=== PATIENT | female | born 1980 | race Caucasian/White ===

== ENCOUNTER 2021-03-30 07:11 | Observation (INO) | payer OTHER ==
[2021-03-30 08:01] LABS: Absolute Lymphocytes (CBC) 1.4 K/uL (0.7-4.9); Basophils % 0.7 % (0-1.3); Hematocrit 40.6 % (36.0-45.0); Lymphocytes % 17.7 % (15.3-44.8); MPV 6.9 fL (7.6-11.3); RBC Red Blood Cell Count 4.42 M/uL (3.86-4.86)
[2021-03-30 08:07] LABS: Protime INR 0.9
[2021-03-30 08:20] LABS: Potassium 3.2 mmol/L (3.5-5.1); Troponin (Emerg Dept Use Only) 0.46 ng/mL (0.0-0.045)
--- NOTE | 2021-03-30 09:14 | RAD REPORT ---
EXAM DESCRIPTION: CT - Head Brain Wo Cont - 03/30/2021 8:54 am CLINICAL HISTORY: Headache COMPARISON: None TECHNIQUE: Computed axial tomography of the head was obtained. IV contrast was not requested. All CT scans are performed using dose optimization technique as appropriate and may include automated exposure control or mA/KV adjustment according to patient size. FINDINGS: An intracranial bleed is not seen . The ventricles are normal in caliber. No extra-axial fluid collection is noted. Fluid within the sinuses/ mastoids is not seen. IMPRESSION: No acute intracranial abnormality is seen. If patient's symptoms persist MRI of the bra in would be recommended.
--- NOTE | 2021-03-30 09:17 | RAD REPORT ---
EXAM DESCRIPTION: CTHead angio03/30/2021 8:54 am CLINICAL HISTORY: Headache/hypertension COMPARISON: None TECHNIQUE: CT angiogram of the head was obtained. 3D MIPS reconstruction performed. All CT scans are performed using dose optimization technique as appropriate and may include automated exposure control or mA/KV adjustment according to patient size. 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 The basilar, internal carotid, anterior cerebral, middle cerebral and posterior cerebral arteries do not demonstrate a significant stenosis No aneurysm displayed IMPRESSION: No acute abnormality is seen
--- NOTE | 2021-03-30 09:19 | RAD REPORT ---
EXAM DESCRIPTION: Joce Single View03/30/2021 8:09 am CLINICAL HISTORY: Palpitations COMPARISON: none FINDINGS: The lungs appear clear of acute infiltrate. The heart is normal size IMPRESSION: No acute abnormalities displayed
--- NOTE | 2021-03-30 09:39 | ER ---
Nurse's Notes [facility] Name: Thelma Pinedo Age: 40 yrs Sex: Female : 1980 Arrival Date: 03/30/2021 Time: 07:16 Bed 25 Private MD: Diagnosis: Hypertensive emergency;Abnormal/elevated troponin Presentation: 03/30 07:25 Chief complaint: Patient states: Pounding headache this morning. Pt reports that her BP ss was 240/150 when she checked it this AM. HX of hypertension. Pt reports that her headache seems to be improving slightly. Coronavirus screen: Client denies travel out of the [place] in the last 14 days. Ebola Screen: Patient denies exposure to infectious person. Patient denies travel to an Ebola-affected area in the 21 days before illness onset. Initial Sepsis Screen: Does the patient meet any 2 criteria? No. Patient's initial sepsis screen is negative. Does the patient have a suspected source of infection? No. Patient's initial sepsis screen is negative. Risk Assessment: Do you want to hurt yourself or someone else? Patient reports no desire to harm self or others. Onset of symptoms was March 30, 2021. 07:25 Method Of Arrival: Ambulatory ss 07:25 Acuity: RENE 3 ss KITCHEN AIDE: 11:10 LMP N/A - Irregular menses jd3 Historical: - Home Meds: 07:26 Hydrochlorothiazide Oral [Active]; amlodipine oral [Active]; Hydralazine Oral [Active]; ss - PMHx: 07:26 Hypertensive disorder; ss - Immunization history:: Adult Immunizations up to date. - Family history:: not pertinent. - Social history:: Smoking status: Patient/guardian denies using tobacco, the patient reports quitting approximately 4 years ago. - Hospitalizations: : No recent hospitalization is reported. Screenin:38 Abuse screen: Denies threats or abuse. Nutritional screening: No deficits noted. jd3 Tuberculosis screening: No symptoms or risk factors identified. Fall Risk Ambulatory Aid- None/Bed Rest/Nurse Assist (0 pts). Gait- Normal/Bed Rest/Wheelchair (0 pts) Mental Status- Oriented to own ability (0 pts). Total Rocha Fall Scale indicates No Risk (0-24 pts). Assessment: 07:30 General: Appears in no apparent distress. comfortable, Behavior is calm, cooperative, jd3 appropriate for age. Pain: Denies pain. Neuro: Level of Consciousness is awake, alert, obeys commands, Oriented to person, place, time, situation, Reports dizziness, headache. Cardiovascular: Heart tones S1 S2 present Capillary refill < 3 seconds Patient's skin is warm and dry. Rhythm is regular. Respiratory: Airway is patent Respiratory effort is even, unlabored, Respiratory pattern is regular, symmetrical, Breath sounds are clear bilaterally. GI: No signs and/or symptoms were reported involving the gastrointestinal system. : No signs and/or symptoms were reported regarding the genitourinary system. EENT: No signs and/or symptoms were reported regarding the EENT system. Derm: Skin is intact, Skin is dry, Skin is normal, Skin temperature is warm. 08:36 Reassessment: Patient appears in no apparent distress at this time. No changes from jd3 previously documented assessment. Patient and/or family updated on plan of care and expected duration. Pain level reassessed. Patient is alert, oriented x 3, equal unlabored respirations, skin warm/dry/pink. 09:42 Reassessment: Patient appears in no apparent distress at this time. Patient and/or jd3 family updated on plan of care and expected duration. Pain level reassessed. Patient is alert, oriented x 3, equal unlabored respirations, skin warm/dry/pink. Patient states feeling better. 11:08 Reassessment: Patient appears in no apparent distress at this time. Patient and/or jd3 family updated on plan of care and expected duration. Pain level reassessed. Patient is alert, oriented x 3, equal unlabored respirations, skin warm/dry/pink. charting continued in [facility]. pt moved to ER hold status Patient states feeling better. Vital Signs: 07:25 BP 181 / 103; Pulse 102; Resp 17; Temp 98.1(TE); Pulse Ox 100% on R/A; ss 07:30 BP 158 / 92; Pulse 90; Resp 18 S; Pulse Ox 100% on R/A; al4 08:00 BP 168 / 89; Pulse 97; Resp 22 S; Pulse Ox 99% on R/A; al4 08:36 BP 159 / 90; Pulse 76; Resp 18 S; Pulse Ox 99% on R/A; jd3 09:45 BP 181 / 101; Pulse 79; Resp 15 S; Pulse Ox 99% on R/A; jd3 11:10 BP 176 / 104; Pulse 99; Resp 18 S; Pulse Ox 99% on R/A; jd3 ED Course: 07:16 Patient arrived in ED. ds1 07:17 Jethro Melendez MD is Attending Physician. rn 07:19 Jaron Alexander, DEYSI is Primary Nurse. jd3 07:26 Triage completed. ss 07:26 Arm band placed on left wrist. ss 07:32 Patient has correct armband on for positive identification. Placed in gown. Bed in low mh5 position. Side rails up X 1. Warm blanket given. neurology stroke physician on. Pulse ox on. NIBP on. 07:33 EKG done, by ED staff, reviewed by Jethro Melendez MD. 5 07:50 Missed attempt(s): 20 gauge in right forearm. Bleeding controlled, band aid applied, jd3 catheter tip intact. Missed attempt(s): 22 gauge in left wrist. Bleeding controlled, band aid applied, catheter tip intact. 08:09 XRAY Chest (1 view) In Process Unspecified. EDMS 08:30 Inserted saline lock: 22 gauge in right antecubital area, using aseptic technique. ss Blood collected. 08:54 CT Head Brain wo Cont In Process Unspecified. EDMS 08:54 CT Head Angio In Process Unspecified. EDMS 09:37 Saman Blakely MD is Hospitalizing Provider. rn 11:09 No provider procedures requiring assistance completed. Patient admitted, IV remains in jd3 place. Administered Medications: 10:17 Drug: Aspirin Chewable Tablet 324 mg Route: PO; jd3 11:12 Follow up: Response: No adverse reaction jd3 11:52 Drug: Metoprolol 25 mg Route: PO; jd3 Outcome: 09:38 Decision to Hospitalize by Provider. rn 11:10 Admitted to ER Hold. Please see [facility] for further documentation. jd3 11:10 Condition: stable 11:10 Instructed on the need for admit, Demonstrated understanding of instructions. 20:05 Patient left the ED. mw2 Signatures: Dispatcher [employer] EDMS Tram Morrell ds1 Jethro Melendez MD MD rn Smirch, Shelby, RN RN Marija Pagan [facility] Jaron Alexander RN RN jd3 Deion Taylor mw2 Ric Clemons al4 Corrections: (The following items were deleted from the chart) 08:34 08:00 BP 168 / 89; Pulse 97bpm; Resp 18bpm; Spontaneous; Pulse Ox 99% RA; al4 al4
--- NOTE | 2021-03-30 09:39 | EDPHYS ---
Physician Documentation [facility] Name: Thelma Pinedo Age: 40 yrs Sex: Female : 1980 Arrival Date: 03/30/2021 Time: 07:16 Bed 25 Private MD: ED Physician Jethro Melendez HPI: 03/30 07:29 This 40 yrs old Female presents to ER via Ambulatory with complaints of High rn Blood Pressure. 07:29 The patient has elevated blood pressure and discovered this at home. Onset: The rn symptoms/episode began/occurred this morning. Modifying factors:. Associated signs and symptoms: Pertinent positives: headache, Pertinent negatives: chest pain, dyspnea, vomiting, weakness. Severity of symptoms: At its worst the blood pressure was severe, in the emergency department the blood pressure is improved. The patient has not experienced similar symptoms in the past. The patient has not recently seen a physician. Pt reports woke up this morning with pounding headache and pounding heartbeat. Reports hx of HTN. Takes 3 different medications for BP. Denies chest pain or sob. Denies abd or back pain. No focal neurological complaints. No vision loss. Takes medication at night, has not taken anything this AM.. RESIDENCY PROGRAM COORDINATOR: 11:10 LMP N/A - Irregular menses jd3 Historical: - Home Meds: 07:26 Hydrochlorothiazide Oral [Active]; amlodipine oral [Active]; Hydralazine Oral [Active]; ss - PMHx: 07:26 Hypertensive disorder; ss - Immunization history:: Adult Immunizations up to date. - Family history:: not pertinent. - Social history:: Smoking status: Patient/guardian denies using tobacco, the patient reports quitting approximately 4 years ago. - Hospitalizations: : No recent hospitalization is reported. ROS: 07:29 Constitutional: Negative for fever, chills, and weight loss, Eyes: Negative for injury, rn pain, redness, and discharge, ENT: Negative for injury, pain, and discharge, Neck: Negative for injury, pain, and swelling, Cardiovascular: Negative for chest pain, and edema, Respiratory: Negative for shortness of breath, cough, wheezing, and pleuritic chest pain, Abdomen/GI: Negative for abdominal pain, nausea, vomiting, diarrhea, and constipation, Back: Negative for injury and pain, : Negative for injury, bleeding, discharge, and swelling, MS/Extremity: Negative for injury and deformity, Skin: Negative for injury, rash, and discoloration, Neuro: Negative for weakness, numbness, tingling, and seizure. Exam: 07:29 Constitutional: This is a well developed, well nourished patient who is awake, alert, rn and in no acute distress. Head/Face: Normocephalic, atraumatic. Eyes: Periorbital areas with no swelling, redness, or edema. Neck: Trachea midline, no masses palpated. Supple, full range of motion without nuchal rigidity, or vertebral point tenderness. No Meningismus. Cardiovascular: Tachycardic, regular. No pulse deficits. Respiratory: No increased work of breathing, no retractions or nasal flaring. Abdomen/GI: soft, non-tender, no masses Skin: Warm, dry MS/ Extremity: Pulses equal, no cyanosis. Neuro: Awake and alert, GCS 15, oriented to person, place, time, and situation. Cranial nerves II-XII grossly intact. Motor strength 5/5 in all extremities. Sensory grossly intact. Cerebellar exam normal. 08:21 ECG was reviewed by the Attending Physician. rn Vital Signs: 07:25 BP 181 / 103; Pulse 102; Resp 17; Temp 98.1(TE); Pulse Ox 100% on R/A; ss 07:30 BP 158 / 92; Pulse 90; Resp 18 S; Pulse Ox 100% on R/A; al4 08:00 BP 168 / 89; Pulse 97; Resp 22 S; Pulse Ox 99% on R/A; al4 08:36 BP 159 / 90; Pulse 76; Resp 18 S; Pulse Ox 99% on R/A; jd3 09:45 BP 181 / 101; Pulse 79; Resp 15 S; Pulse Ox 99% on R/A; jd3 11:10 BP 176 / 104; Pulse 99; Resp 18 S; Pulse Ox 99% on R/A; jd3 MDM: 07:20 Patient medically screened. rn 09:35 Differential diagnosis: hypertensive crisis, Malignant HTN, intracerebral hemorrhage. rn Data reviewed: vital signs, nurses notes, lab test result(s), EKG, radiologic studies, CT scan, plain films, and as a result, I will admit patient. Data interpreted: property assessment monitor: rate is 76 beats/min, rhythm is normal sinus rhythm, regular, with no ectopy, Interpretation: normal rate, normal rhythm, Pulse oximetry: on room air is 99 %. Interpretation: normal. Counseling: I had a detailed discussion with the patient and/or guardian regarding: the historical points, exam findings, and any diagnostic results supporting the discharge/admit diagnosis, lab results, radiology results, the need for further work-up and treatment in the hospital. Response to treatment: the patient's symptoms have markedly improved after treatment, and as a result, I will admit patient. Admission orders: after a detailed discussion of the patient's condition and case, the admit orders are written by me. ED course: Patient has improved symptomatically, blood pressure now down to 159/90 without intervention here. ECG without acute ischemia. Troponin mildly elevated, will admit for hypertensive emergency. Admitted to Dr. Blakely. 03/30 07:29 Order name: Basic Metabolic Panel; Complete Time: 08:20 03/30 07:29 Order name: CBC with Diff; Complete Time: 08:20 03/30 07:29 Order name: NT PRO-BNP; Complete Time: 08:20 rn 03/30 07:29 Order name: PT-INR; Complete Time: 08:20 03/30 07:29 Order name: Troponin (emerg Dept Use Only); Complete Time: 08:20 03/30 09:39 Order name: SARS-COV-2 RT PCR (Document "Date of Onset" if Symptomatic) 03/30 09:39 Order name: SARS-COV-2 RT PCR; Complete Time: 11:37 EDNH 03/30 10:21 Order name: Basic Metabolic Panel EDNH 03/30 10:21 Order name: Basic Metabolic Panel EDNH 03/30 10:21 Order name: CBC with Automated Diff EDMS 03/30 10:21 Order name: CBC with Automated Diff EDMS 03/30 10:21 Order name: Lipid Profile EDNH 03/30 10:21 Order name: Lipid Profile EDNH 03/30 10:21 Order name: Troponin I EDNH 03/30 07:29 Order name: XRAY Chest (1 view); Complete Time: 09:24 rn 03/30 07:29 Order name: EKG; Complete Time: 07:29 rn 03/30 07:29 Order name: Cardiac monitoring; Complete Time: 07:32 rn 03/30 07:29 Order name: EKG - Nurse/Tech; Complete Time: 07:32 rn 03/30 07:29 Order name: IV Saline Lock; Complete Time: 08:28 rn 03/30 07:29 Order name: Labs collected and sent; Complete Time: 07:55 rn 03/30 07:29 Order name: O2 Per Protocol; Complete Time: 07:32 rn 03/30 07:29 Order name: O2 Sat Monitoring; Complete Time: 07:32 rn 03/30 07:29 Order name: CT Head Brain wo Cont; Complete Time: 09:24 rn 03/30 07:29 Order name: CT Head Angio; Complete Time: 09:24 rn 03/30 10:21 Order name: Heart Healthy EDMS 03/30 10:21 Order name: Echo with Doppler EDMS 03/30 10:21 Order name: Troponin I EDMS 03/30 10:21 Order name: Troponin I EDMS EC:21 Rate is 82 beats/min. Rhythm is regular. QRS [place] is Normal. NC interval is normal. QRS rn interval is normal. QT interval is prolonged at 497 msec. No Q waves. T waves are Normal. No ST changes noted. Clinical impression: NSR w/ Non-specific ST/T Changes. Interpreted by me. Reviewed by me. Administered Medications: 10:17 Drug: Aspirin Chewable Tablet 324 mg Route: PO; jd3 11:12 Follow up: Response: No adverse reaction jd3 11:52 Drug: Metoprolol 25 mg Route: PO; jd3 Disposition Summary: 03/30/21 09:38 Hospitalization Ordered Hospitalization Status: Observation rn Provider: Saman Blakely [facility]n [facility] rn Condition: Stable rn Problem: new rn Symptoms: have improved rn Bed/Room Type: Standard rn Room Assignment: 401(03/30/21 16:50) morris Diagnosis - Hypertensive emergency rn - Abnormal/elevated troponin rn Forms: - Medication Reconciliation Form rn - SBAR form rn Signatures: Dispatcher [employer] Jethro Alonso MD MD rn Smirch, Shelby, RN RN ss Davies, Jonathon, RN RN jd3 Aguilar, Jose RN DEYSI caceres Corrections: (The following items were deleted from the chart) 16:50 09:38 rn ja1
[2021-03-30] MEDS ORDERED: ASPIRIN 81 MG CHEWABLE TABLET ONE (10:06)
[2021-03-30] MEDS ORDERED: ACETAMINOPHEN 500 MG TAB PO PRN (10:18)
[2021-03-30] MEDS ORDERED: MORPHINE 2 MG/ML SYR IV PRN (10:18)
[2021-03-30] MEDS ORDERED: METOPROLOL TAR 25 MG TAB ONE (11:51)
[2021-03-30 13:34] VITALS: BMI 30.2
[2021-03-30] MEDS ORDERED: METOPROLOL TAR 50 MG TAB ONE (17:07)
[2021-03-30] MEDS: METOPROLOL TAR 50 MG TAB PO SCH (17:09)
--- NOTE | 2021-03-30 19:20 | P.HP ---
Certification for Inpatient Patient admitted to: Observation With expected LOS: <2 Midnights Patient will require the following post-hospital care: None Practitioner: I am a practitioner with admitting privileges, knowledge of patient current condition, hospital course, and medical plan of care. Services: Services provided to patient in accordance with Admission requirements found in Title 42 Section 412.3 of the Code of Federal Regulations Patient History Date of Service: 03/30/21 Reason for admission: Hypertensive emergency History of Present Illness: Patient is a 40-year-old female who came to the hospital with elevated blood pressure. She states initially it was 240/150. She has a history of hypertension but it has never been this high. She came into the hospital for further evaluation. In the ER, she was given anti hypertensives and her blood pressure has improved. She appears to be doing well clinically. She was having some chest pain but that has resolved. Her initial troponins are elevated. EKGs are unremarkable. Patient will be admitted for further evaluation. Allergies No Known Allergies Allergy (Unverified 03/30/21 10:59) Home Medications: Amlodipine [Norvasc*] 1 tab PO DAILY 03/30/21 Hydralazine [Apresoline*] 1 tab PO TID 03/30/21 hydroCHLOROthiazide [Hydrochlorothiazide] 1 tab PO DAILY 03/30/21 - Past Medical/Surgical History Has patient received pneumonia vaccine in the past: No Diabetic: No -: Hypertension -: - Family History Father Medical History: Diabetes Mother Medical History: Hypertension - Social History Smoking Status: Unknown if ever smoked Alcohol use: Yes Place of Residence: Home Review of Systems 10-point ROS is otherwise unremarkable Physical Examination - Vital Signs Temperature: 97.4 F Blood Pressure: 142/90 Pulse: 81 Respirations: 18 Pulse Ox (%): 100 - Physical Exam General: Alert, In no apparent distress, Oriented x3 HEENT: Atraumatic, PERRLA, Mucous membr. moist/pink, EOMI, Sclerae nonicteric Neck: Supple, 2+ carotid pulse no bruit, No LAD, Without JVD or thyroid abnormality Respiratory: Clear to auscultation bilaterally, Normal air movement Cardiovascular: Regular rate/rhythm, Normal S1 S2 Gastrointestinal: Normal bowel sounds, No tenderness Musculoskeletal: No tenderness Integumentary: No rashes Neurological: Normal gait, Normal speech, Normal strength at 5/5 x4 extr, Normal tone, Normal affect Lymphatics: No axilla or inguinal lymphadenopathy - Studies Laboratory Data (last 24 hrs) 03/30/21 07:52: PT 10.3, INR 0.90 03/30/21 07:52: WBC 7.70, Hgb 13.9, Hct 40.6, Plt Count 293 03/30/21 07:52: Sodium 139, Potassium 3.2 L, BUN 17, Creatinine 0.99, Glucose 111 H Assessment & Plan - Problems (Diagnosis) (1) Hypertensive emergency Current Visit: Yes Status: Acute (2) Elevated troponin Current Visit: Yes Status: Acute - Plan 1. Serial troponins and EKG 2. Cardiology consultation 3. Echocardiogram and stress test if cardiology is agreeable 4. Anti-platelet therapy, anti coagulation, beta-pablo, statin, and O2 as needed 5. IV morphine for pain 6. Nitro p.r.n. 7. Strict blood pressure control Discharge Plan: Home Plan to discharge in: 24 Hours - Advance Directives Does patient have a Living Will: No Does patient have a Durable POA for Healthcare: No - Code Status/Comfort Care Code Status Assessed: Yes Code Status: Full Code Critical Care: No Time Spent Managing PTS Care (In Minutes): 45
[2021-03-30] MEDS ORDERED: LOSARTAN POTASSIUM 50 MG TABLET ONE (19:37)
[2021-03-30] MEDS ORDERED: METOPROLOL TAR 50 MG TAB PO SCH (21:00)
[2021-03-30] MEDS: LOSARTAN POTASSIUM 50 MG TABLET PO SCH (22:22)
[2021-03-31 04:03] LABS: Absolute Lymphocytes (CBC) 1.8 K/uL (0.7-4.9); Basophils % 0.6 % (0-1.3); Hematocrit 40.7 % (36.0-45.0); Lymphocytes % 29.3 % (15.3-44.8); MPV 7.4 fL (7.6-11.3)
[2021-03-31 04:17] LABS: Potassium 3.1 mmol/L (3.5-5.1); Troponin I 0.32 ng/mL (0.0-0.045)
[2021-03-31] MEDS: METOPROLOL TAR 50 MG TAB PO SCH (05:24)
[2021-03-31] MEDS ORDERED: REGADENOSON 0.4 MG/5 ML SYR IV ONE (08:35)
[2021-03-31] MEDS: LOSARTAN POTASSIUM 50 MG TABLET PO SCH (08:38)
[2021-03-31 08:41] VITALS: BP 142/90; TEMP 97.4
[2021-03-31] MEDS ORDERED: ASPIRIN EC 81 MG TAB PO SCH (09:00)
[2021-03-31] MEDS ORDERED: ENOXAPARIN 40 MG/0.4 ML SQ SCH (09:00)
[2021-03-31 10:22] VITALS: O2SAT 99
--- NOTE | 2021-03-31 14:25 | ECHO ---
HEIGHT: 5 ft 9 in WEIGHT: 205 lb 0 oz DATE OF STUDY: 03/31/[address]: Saman Blakely MD 2-DIMENSIONAL: YES M.MODE: YES DOPPLER: YES COLOR FLOW: YES TDS: NO PORTABLE: NO DEFINITY: NO BUBBLE STUDY: NO DIAGNOSIS: HYPERTENSION CARDIAC HISTORY: CATHERIZATION: NO SURGERY: NO PROSTHETIC VALVE: NO PACEMAKER: NO MEASUREMENTS (cm) DIASTOLIC (NORMALS) SYSTOLIC (NORMALS) IVSd 1.0 (0.6-1.2) LA Diam 3.3 (1.9-4.0) LVEF 77% LVIDd 5.1 (3.5-5.7) LVIDs 2.7 (2.0-3.5) %FS 46% LVPWd 1.0 (0.6-1.2) Ao Diam 2.7 (2.0-3.7) 2 DIMENSIONAL ASSESSMENT: RIGHT ATRIUM: NORMAL LEFT ATRIUM: NORMAL RIGHT VENTRICLE: NORMAL LEFT VENTRICLE: NORMAL TRICUSPID VALVE: NORMAL MITRAL VALVE: NORMAL PULMONIC VALVE: NORMAL AORTIC VALVE: NORMAL PERICARDIAL EFFUSION: NONE AORTIC ROOT: NORMAL LEFT VENTRICULAR WALL MOTION: NORMAL DOPPLER/COLOR FLOW: NORMAL COMMENTS: NORMAL 2D ECHOCARDIOGRAM WITH DOPPLER. NO WALL MOTION ABNORMALITY. TECHNOLOGIST: Tabatha AGUILAR
--- NOTE | 2021-04-01 08:20 | P.DS ---
Discharge Date: 03/31/21 Disposition: ROUTINE DISCHARGE Discharge Condition: GOOD Reason for Admission: Hypertensive emergency - Problems (1) Hypertensive emergency Status: Acute (2) Elevated troponin Status: Acute Brief History of Present Illness: Patient is a 40-year-old female who came to the hospital with elevated blood pressure. She states initially it was 240/150. She has a history of hypertension but it has never been this high. She came into the hospital for further evaluation. In the ER, she was given anti hypertensives and her blood pressure has improved. She appears to be doing well clinically. She was having some chest pain but that has resolved. Her initial troponins are elevated. EKGs are unremarkable. Patient will be admitted for further evaluation. Hospital Course: Patient is clinically doing well. Patient's chest pain is resolved. Patient blood pressure control. At this time patient is stable for discharge with outpatient follow-up. Echocardiogram was unremarkable. Vital Signs/Physical Exam: Temp Pulse Resp BP Pulse Ox 97.4 F 81 18 142/90 H 100 03/31/21 08:42 03/31/21 08:42 03/31/21 08:42 03/31/21 08:42 03/31/21 08:42 General: Alert, In no apparent distress, Oriented x3 Laboratory Data at Discharge: WBC 6.00 K/uL (4.3-10.9) D 03/31/21 03:24 Hgb 13.7 g/dL (12.0-15.0) 03/31/21 03:24 Hct 40.7 % (36.0-45.0) 03/31/21 03:24 Plt Count 287 K/uL (152-406) 03/31/21 03:24 PT 10.3 SECONDS (9.5-12.5) 03/30/21 07:52 INR 0.90 03/30/21 07:52 Sodium 138 mmol/L (136-145) 03/31/21 03:24 Potassium 3.1 mmol/L (3.5-5.1) L 03/31/21 03:24 BUN 21 mg/dL (7-18) H 03/31/21 03:24 Creatinine 0.95 mg/dL (0.55-1.3) 03/31/21 03:24 Glucose 103 mg/dL (74-106) 03/31/21 03:24 Troponin I 0.32 ng/mL (0.0-0.045) H 03/31/21 03:24 Triglycerides Cancelled 03/31/21 06:00 Cholesterol Cancelled 03/31/21 06:00 HDL Cholesterol Cancelled 03/31/21 06:00 Cholesterol/HDL Ratio Cancelled 03/31/21 06:00 Home Medications: Aspirin [Aspirin EC 81 MG] 81 mg PO DAILY #30 tablet. 03/31/21 Losartan Potassium [Cozaar*] 50 mg PO BID #60 tablet 03/31/21 Metoprolol Tartrate [Lopressor] 25 mg PO BID #60 tab 03/31/21 New Medications: Aspirin [Aspirin EC 81 MG] 81 mg PO DAILY #30 tablet. Losartan Potassium [Cozaar*] 50 mg PO BID #60 tablet Metoprolol Tartrate [Lopressor] 25 mg PO BID #60 tab Physician Discharge Instructions: OK TO DC IV AND DC HOME after echocardiogram completed FOLLOW-UP WITH PRIMARY CARE PROVIDER IN 1-2 WEEKS FOLLOW-UP WITH CARDIOLOGY IN 1-2 WEEKS RETURN TO THE ER IF symptoms worsen CALL or TEXT DR. PEDERSEN AT [phone] IF ANY QUESTIONS REGARDING HOSPITAL STAY. PLEASE CALL THE FLOOR AT [phone] IF ANY MEDICATION OR NURSING QUESTIONS. Diet: AHA Activity: Fall precautions Followup: Gray Wilburn MD [ACTIVE - CAN ADMIT] - 1-2 Weeks (Call to schedule an appointment) NONE,NONE [Primary Care Provider] - 1-2 Weeks (call to schedule an appointment) Time spent managing pt's care (in minutes): 35
== END 2021-03-31 10:59 | disposition home or self-care (01) ==
LOC: ER 07:11 → ERHOLD 10:42 → 4TH 20:26
PROVIDERS: ADMIT Hospitalist; ATTEND Hospitalist
DX: I16.1 Hypertensive emergency (principal); R77.8 Other specified abnormalities of plasma proteins; Z20.822 Contact with and (suspected) exposure to COVID-19
CPT/HCPCS: 93306; 85025 ×2; 80048 ×2; 36415; 85610; 80061; 84484 ×3; 83880; 70450; 70496; 71045; 99285; U0003; Q9967; J1650; G0378 ×3; J2785